=== PATIENT | female | born 1960 | race Two or more races ===

== ENCOUNTER 2022-08-02 16:54 | Emergency (ER) | payer OTHER ==
[~2022-08-02] VITALS: Ht 165.1 cm; Wt 63.5 kg
--- NOTE | 2022-08-02 17:40 | NUR ---
BIB PA FROM SNF FOR EVAL S/P UNWITNESSED FALL LAST NIGHT, NOTED BRUISING TO FOREHEAD, CHEST AND L SHOULDER.
--- NOTE | 2022-08-02 17:46 | NUR ---
PT IS A DNR NOT FULL CODE , ACCCORDING TO EDIE HER BROTHER
--- NOTE | 2022-08-02 18:14 | NUR ---
PT TAKEN TO CT
--- NOTE | 2022-08-02 19:20 | NUR ---
[facility] CALLED FOR TRANSPORT ETA 90 MINS.
--- NOTE | 2022-08-02 19:27 | NUR ---
REPORT RECEIVED FROM SURESH MCGREGOR. PATIENT WILL BE DISCHARGED. WAITING FOR TRANSPORTATION TO BRING PT BACK HOME.
--- NOTE | 2022-08-02 20:49 | NUR ---
REPORT GIVEN TO [facility].
--- NOTE | 2022-08-02 21:27 | NUR ---
Patient discharged to home in stable condition. Written and verbal after care instructions given. Patient verbalizes understanding of instruction.
[2022-08-02 21:28] VITALS: BP 109/71
== END 2022-08-02 21:00 ==
LOC: ER 17:00
DX: S00.83XA Contusion of other part of head, initial encounter (principal); S20.219A Contusion of unspecified front wall of thorax, initial encounter; F32.9 Major depressive disorder, single episode, unspecified; Z86.69 Personal history of other diseases of the nervous system and sense organs; Z87.440 Personal history of urinary (tract) infections; W18.30XA Fall on same level, unspecified, initial encounter; Y93.89 Activity, other specified; Y92.89 Other specified places as the place of occurrence of the external cause; Y99.8 Other external cause status
CPT/HCPCS: 70450-TC

== ENCOUNTER 2022-11-04 18:37 | Inpatient (IN) | payer OTHER ==
[~2022-11-04] VITALS: Ht 162.6 cm; Wt 54.4 kg
--- NOTE | 2022-11-04 18:40 | NUR ---
RECEVED PT 62 YRS FENALE TRANSFER FROM SNF BY LILIAN SANCHEZ for evaluation OF WEEKNEESS on lt side pt awake and alert x1 norm[place] level LAST KNOWN WILL AT 1400 TODY
--- NOTE | 2022-11-04 19:05 | NUR ---
CODE STROKE ACTIVATED
--- NOTE | 2022-11-04 19:07 | NUR ---
RN VP DIGITAL MARKETING AT PT'S BEDSIDE WITH TELE NEURO COMPUTER
--- NOTE | 2022-11-04 19:07 | NUR ---
PT TAKEN TO CT VIA GURNEY VIA ACLS PROTOCOL
[2022-11-04] MEDS ORDERED: IOHEXOL-350 100 ML VIAL IV ONE (19:08)
[2022-11-04] MEDS ORDERED: IV NS 0.9% 250 ML IV ONE (19:08)
[2022-11-04] MEDS ORDERED: CT SWABBABLE VALVE TRANS SET 1 EA INFUS.SET MC ONE (19:08)
--- NOTE | 2022-11-04 19:08 | NUR ---
TABLE WORKER WITH PT IN CT ROOM
--- NOTE | 2022-11-04 19:22 | NUR ---
PT RETURNED TO ER BED [address]
--- NOTE | 2022-11-04 19:28 | NUR ---
PT TO TELE NEURO CALL WITH DR. WILLEM BUCKNER NEURO
--- NOTE | 2022-11-04 19:29 | NUR ---
ELECTRIC POWER SUPERINTENDENT AT PT'S BEDSIDE FOR EKG
[2022-11-04 19:34] LABS: CALCIUM, SERUM 9.2 mg/dL (8.5-10.1); CARBON DIOXIDE 32 mmol/L (21-32); CHLORIDE 108 mmol/L (98-107); CREATININE 1.1 mg/dL (0.6-1.3); GLUCOSE 114 mg/dL (74-106); POTASSIUM 4.1 mmol/L (3.5-5.1); SODIUM SERUM 144 mmol/L (136-145); UREA NITROGEN, BLOOD 21 mg/dL (7-18)
--- NOTE | 2022-11-04 19:40 | NUR ---
RECEIVED PT WITH ONGOING INTERVIEW FROM TELE NEURO DR BUCKNER. CODE STROKE WAS ACTIVATED FOR HER AT AROUND 1905. PER DR BUCKNER PT IS NOT A CANDIDATE AND PT DIDNT HAVE A STROKE. PATIENT IS AAOX2. HER BASELINE. UPPER EXTREMITIES ARE STRONG, LOWER EXTREMITIES ARE WEAK. PT HAS IV RANDALL ON LEFT AC G20. PATIENT PASSED SWALLOWING EVAL NIHSS SCORE 4, BS 81, DR HOGDSON MADE AWARE.
--- NOTE | 2022-11-04 19:49 | NUR ---
HAND OFF RUPINDER PRINCE
[2022-11-04 19:51] LABS: BASOPHILS % (AUTO) 0.4 % (0.0-2.0); EOSINOPHILS % (AUTO) 0.9 % (0.0-6.0); HEMATOCRIT 32 % (33-45); HEMOGLOBIN 10.4 g/dL (11.5-14.8); LYMPHOCYTES % (AUTO) 14.3 % (20.0-44.0); MEAN CORPUSCULAR HGB CONC 33 g/dl (31.0-36.0); MEAN CORPUSCULAR VOLUME 85 fL (82-100); MONOCYTES # (AUTO) 0.7 K/uL (0.1-1.30); MONOCYTES % (AUTO) 9.9 % (2.0-12.0); NEUTROPHILS # (AUTO) 5.3 K/uL (1.8-8.9); NEUTROPHILS % (AUTO) 74.5 % (43.0-81.0); PLATELET COUNT (AUTO) 358 K/uL (150-450); RED BLOOD CELL COUNT(AUTO) 3.73 MIL/uL (4.0-5.2); WHITE BLOOD COUNT (AUTO) 7.1 K/uL (4.3-11.0)
[2022-11-04] MEDS ORDERED: ASPIRIN 325 MG TABLET PO ONE (20:00)
[2022-11-04] MEDS ORDERED: ASPIRIN 325 MG TABLET ONE (20:28)
[2022-11-04] MEDS ORDERED: HALOPERIDOL LACTATE INJ 5 MG/ML VIAL ONE (20:29)
[2022-11-04] MEDS ORDERED: HALOPERIDOL LACTATE INJ 5 MG/ML VIAL IM ONE (20:30)
--- NOTE | 2022-11-04 20:34 | NUR ---
PATIENT REMOVED IV LINE. AND FIGHTING PHYSICALLY THE STAFF. HALDOL 5MG IM GIVEN.
--- NOTE | 2022-11-04 20:37 | NUR ---
IV RANDALL REINSERTED ON RIGHT HAND G20. BLOOD DRAWN AND SENT TO LAB
--- NOTE | 2022-11-04 20:59 | NUR ---
SPOKE TO [facility] WELLNESS INSTRUCTOR , SWEETIE. CLINICALS INFO GIVEN. POSSIBLE TRANSFER. TEL: [phone]
[2022-11-04] MEDS ORDERED: FOLI5VIA2 PO (21:40)
[2022-11-04] MEDS ORDERED: CHOL400T11 PO (21:40)
[2022-11-04] MEDS ORDERED: ESCI10TA PO (21:40)
[2022-11-04] MEDS ORDERED: MEMA10TA PO (21:40)
[2022-11-04] MEDS ORDERED: OLAN7.5T3 PO (21:40)
[2022-11-04] MEDS ORDERED: MULT15TA3 PO (21:40)
[2022-11-04] MEDS ORDERED: ATOR20TA PO (21:40)
[2022-11-04] MEDS ORDERED: DONE10TA11 PO (21:40)
[2022-11-04] MEDS ORDERED: MULT-594 PO (21:40)
[2022-11-04] MEDS ORDERED: ASPI-1169 PO (21:40)
--- NOTE | 2022-11-04 21:52 | NUR ---
REC'D A CALL FROM DORENE PITT CM. DR ABRIL PAZ AT [facility] HAS ACCEPTED THE PT. WAITING FOR BED ASSIGNMENT.
--- NOTE | 2022-11-04 22:36 | NUR ---
UPDATE GIVEN TO BROTHER JEISON NICE. CELL # [phone] ([facility] [employer]) AND HOME [phone]
--- NOTE | 2022-11-05 10:26 | NUR ---
CALLED [facility] [phone] ASKED CM TO CALL US BACK.
--- NOTE | 2022-11-05 10:30 | NUR ---
INEZ CATHERINE [phone] WILL CALL US BACK.
--- NOTE | 2022-11-05 10:42 | NUR ---
INEZ REGAL [id number] TELE BED [phone]
--- NOTE | 2022-11-05 10:48 | NUR ---
DR. JACKSON SPEAKING WITH DR. TSE.
--- NOTE | 2022-11-05 11:26 | NUR ---
GOT BED 328-2 ADMITTING INFORMED.
--- NOTE | 2022-11-05 11:38 | NUR ---
REPORT GIVEN TO KORINA PRINCE. FOR CONTINUITY OF CARE.
--- NOTE | 2022-11-05 12:00 | NUR ---
MOVED TO INPATIENT ROOM SAFELY PER PROTOCOL.
--- NOTE | 2022-11-05 12:30 | NUR ---
WRITER EDITOR OPENING NOTES ADMITTED THIS 62 YO FEMALE TO UNIT AT 1205 VIA GURNEY WITH DX OF TIA. AOX1, AWARE TO SELF ONLY, TALKING TO HERSELF, CONFUSED, UNABLE TO MAKE NEEDS FULLY KNOWN. VS TAKEN AND RECORDED. PT ON ROOM AIR. TOLERATING WELL WITH NO ACUTE RESPIRATORY DISTRESS NOTED. IV ACCESS ON LW G#20 SALINE LOCKED, PATENT AND FLUSHING WELL, WRAPPED IN GAUZE. LUNGS CLEAR ON AUSCULTATION BILATERALLY, ABDOMEN SOFT, NON-TENDER AND NON-DISTENDED WITH + BOWEL SOUNDS ON ALL FOUR QUADRANTS. PHOTOS OF SKIN ISSUES TAKEN AND FILED ON HER CHART. NIHSS SCORE OF 4, NURSING SWALLOW SCREEN DONE AND PT PASSED, EDUCATION ATTEMPTED BUT PATIENT CONFUSED/POOR CONCENTRATION, MD AWARE. SAFETY MEASURES IN PLACE: BED IN LOWEST AND LOCKED POSITION, SIDE RAILS X2, CALL LIGHT AND TRAY TABLE WITHIN EASY REACH. WILL CONTINUE TO MONITOR.
--- NOTE | 2022-11-05 15:05 | NUR ---
RN NOTES - RESTRAINTS APPLIED ON BOTH WRISTS FOR PATIENT FOR SAFETY, PATIENT TRYING TO PULL IV AND WASNT COMPLYING ON SAFETY MEASURES. DR JACKSON ORDERED, CALLED BROTHER EDIE AND INFORM, UNDERSTANDS THAT NEED.
[2022-11-05] MEDS ORDERED: LORAZEPAM INJ 2 MG/ML VIAL IV ONE (15:30)
[2022-11-05 16:00] VITALS: BP 123/74
--- NOTE | 2022-11-05 16:00 | NUR ---
RN NOTES - MRI OF THE BRAIN CALLED BROTHER EDIE FOR THE HISTORY OF THE PATIENT, DR JACKSON ORDERED ONE TIME ATIVAN 1 MG IV FOR MRI PREPARATION. WILL ADMINISTER, JUST AWAITING CONFIRMATION FROM MRI.
--- NOTE | 2022-11-05 16:11 | NUR ---
RN NOTES - MRI JACKELINE FONSECA PICKED PATIENT UP, ATIVAN 1 MG GIVEN TO THE PATIENT.
[2022-11-05] MEDS: MULTIVITAMINS,THERAGRAN 1 UDTAB TABLET PO SCH (17:38)
[2022-11-05] MEDS: MEMANTINE HCL 5 MG TABLET PO SCH (17:38)
--- NOTE | 2022-11-05 18:28 | NUR ---
RN NOTES - CODE STATUS IS DNR -COMFORT FOCUSED ONLY PER SNF MD DANIEL AWARE, FAMILY CONFIRMED
--- NOTE | 2022-11-05 19:22 | NUR ---
MS RN CLOSING NOTE PATIENT IN BED, WITH HOB ELEVATED, AOX1, CONFUSED, NOT IN ANY FORM OF ACUTE DISTRESS. IV ACCESS ON LW 20G SL, PATENT AND FLUSHING WELL. STILL WITH BILATERAL SOFT RESTRAINTS FOR SAFETY. ALL DUE MEDS GIVEN. ALL NEEDS MET. SAFETY MEASURES MAINTAINED. KEPT BED IN LOCKED AND IN LOWEST POSITION. SIDE RAILS UP X2. CALL LIGHT AND TRAY TABLE WITHIN EASY REACH. ENDORSED TO RADIO PRESENTER NURSE.
--- NOTE | 2022-11-05 19:58 | NUR ---
POSTAL TRANSPORTATION CLERK OPENING NOTE PATIENT AWAKE IN BED, ALERT TO NAME BUT CONFUSED. PATIENT STABLE ON RA, NO S/S OF DISTRESS OR SOB NOTED, BREATHING EVEN AND UNLABORED. PT ON EXTERNAL HORSE STUD WORKER READING SINUS RHYTHM, HR: 64. IV ACCESS ON LEFT WRIST #20G INTACT AND SALINE LOCKED. BILATERAL SOFT WRIST RESTRAINTS IN PLACE. SAFETY MEASURES IN PLACE: CALL LIGHT WITHIN REACH, SIDE RAILS UP X 3, BED LOCKED IN LOWEST POSITION, HOB ELEVATED, BED ALARM ON. WILL CONTINUE TO MONITOR PATIENT
[2022-11-05 20:00] VITALS: BP 119/82
[2022-11-05] MEDS ORDERED: ATORVASTATIN 40 MG TABLET PO SCH (22:00)
[2022-11-05] MEDS ORDERED: OLANZAPINE 5 MG TABLET PO SCH (22:00)
[2022-11-06] VITALS: BP 153/90
--- NOTE | 2022-11-06 06:19 | NUR ---
EMPLOYMENT OFFICE CLERK CLOSING NOTE PATIENT SLEEPING IN BED, EASILY AWAKENED, ALERT TO NAME BUT VERY CONFUSED. PATIENT STABLE ON RA, NO S/S OF DISTRESS OR SOB NOTED, BREATHING EVEN AND UNLABORED. PT ON EXTERNAL COMMUNITY DEVELOPMENT TECHNICIAN READING SINUS MARCOS, HR: 57. IV ACCESS ON LEFT WRIST #20G INTACT AND SALINE LOCKED. BILATERAL SOFT WRIST RESTRAINTS IN PLACE. NO SIGNIFICANT CHANGES THIS SHIFT. MEDICATIONS GIVEN ORDERED, PT NEEDS MET THROUGHOUT SHIFT, PATIENT TURNED Q2H AND HYGIENE CARE PROVIDED. SAFETY MEASURES IN PLACE: CALL LIGHT WITHIN REACH, SIDE RAILS UP X 3, BED LOCKED IN LOWEST POSITION, HOB ELEVATED, BED ALARM ON. WILL ENDORSE TO DAYSHIFT RN FOR CONTINUITY OF CARE
[2022-11-06 07:00] VITALS: BP 130/76
--- NOTE | 2022-11-06 07:50 | NUR ---
BLACK OXIDE COATING EQUIPMENT TENDER OPENING NOTE PATIENT AWAKE IN BED, ALERT TO NAME BUT CONFUSED. PT STABLE ON RA, NO S/S OF DISTRESS OR SOB NOTED, NO C/O OF PAIN AND DISCOMFORT . PT ON EXTERNAL IDENTITY ACCESS MANAGEMENT ARCHITECT READING SINUS RHYTHM, HR: 64. IV ACCESS ON LEFT WRIST #20G INTACT AND SALINE LOCKED. BILATERAL SOFT WRIST RESTRAINTS IN PLACE. SAFETY MEASURES IN PLACE: CALL LIGHT WITHIN REACH, SIDE RAILS UP X 3, BED LOCKED IN LOWEST POSITION, HOB ELEVATED, BED ALARM ON. WILL CONTINUE TO MONITOR PATIENT
[2022-11-06] MEDS: MEMANTINE HCL 5 MG TABLET PO SCH (08:46)
[2022-11-06] MEDS: MULTIVITAMINS,THERAGRAN 1 UDTAB TABLET PO SCH (08:54)
[2022-11-06] MEDS ORDERED: ENOXAPARIN SODIUM 40 MG/0.4 ML DISP.SYRIN SQ SCH (09:00)
[2022-11-06] MEDS ORDERED: ASPIRIN EC 81 MG TABLET.DR PO SCH (09:00)
[2022-11-06] MEDS ORDERED: ESCITALOPRAM OXALATE (10 MG) 10 MG TABLET PO SCH (09:00)
[2022-11-06] MEDS ORDERED: MULTIVIT W/MINERALS 1 TAB TABLET PO SCH (09:00)
[2022-11-06] MEDS ORDERED: DONEPEZIL 5 MG TABLET PO SCH (09:00)
[2022-11-06] MEDS ORDERED: CHOLECALCIFEROL 1,000 UNIT TABLET (VIT D3) PO SCH (09:00)
[2022-11-06 12:17] LABS: THYROID STIMULATING HORMONE 2.253 uIU/mL (0.358-3.74)
--- NOTE | 2022-11-06 15:48 | NUR ---
FAX MACHINE OPERATOR NOTES PATIENT WAS SEEN BY DR JACKSON AND WITH ORDER FOR DISCHARGE TO SNF - [facility] , ALL D/C PAPERS WERE PREPARED AND DISCHARGE INSTRUCTIONS REGARDING STROKE WAS GIVEN TO BROTHER EDIE AND REPORT WAS GIVEN TO DIDI PRINCE IN SNF , ALL BELONGINGS WAS BROUGHT BY THE PATIENT AND FORM WAS SIGNED BY THE BROTHER , PATIENT WILL BE PIC K UP BY AMBULANCE VIA GURNEY , PICK AROUND 1535 AND LEFT WITH NO SOB OR DISTRESS NOTED , NO C/O OF PAIN AND DISCOMFORT AND IN A STABLE CONDITION
== END 2022-11-06 15:50 | DRG 69 ==
LOC: ER 19:04 → TELE 11-05 11:37 → MED 11-06 12:44
PROVIDERS: ADMIT Internal Medicine; ATTEND Internal Medicine
DX: G45.9 Transient cerebral ischemic attack, unspecified (principal); F02.83 Dementia in other diseases classified elsewhere, unspecified severity, with mood disturbance; E78.5 Hyperlipidemia, unspecified; Z66 Do not resuscitate; Z20.822 Contact with and (suspected) exposure to COVID-19; Z74.09 Other reduced mobility; G30.9 Alzheimer's disease, unspecified; Z87.440 Personal history of urinary (tract) infections; F32.9 Major depressive disorder, single episode, unspecified; Z79.82 Long term (current) use of aspirin; Z79.899 Other long term (current) drug therapy; D53.9 Nutritional anemia, unspecified; R27.0 Ataxia, unspecified; R29.704 NIHSS score 4
CPT/HCPCS: 36415; 70450-TC; 70496-TC; 70498-TC; 70551-TC; 71045-TC; 80048-TC; 80061-TC; 82962-TC; 83540-TC; 84443-TC; 84484-TC; 85025-TC; 85730-TC; 87081-TC; 93307-TC; 97110-TC; 97112-TC; 97116-TC; 97530-TC; C9803; G0378; J1630; J1650; J2060; J7050; Q9967

== ENCOUNTER 2023-11-12 16:23 | Emergency (ER) | payer MEDICARE, OTHER ==
[~2023-11-12] VITALS: Ht 162.6 cm; Wt 54.4 kg
[~2023-11-12 16:23] MED LIST: ASPI-1169 PO; ATOR20TA PO; CHOL400T11 PO; DONE10TA11 PO; ESCI10TA PO; FOLI5VIA2 PO; MEMA10TA PO; MULT-594 PO; MULT15TA3 PO; OLAN7.5T3 PO
[2023-11-12 17:24] LABS: BASOPHILS % (AUTO) 0.7 % (0.0-2.0); CALCIUM, SERUM 9.5 mg/dL (8.5-10.1); CREATININE 0.8 mg/dL (0.6-1.3); EOSINOPHILS # (AUTO) 0.1 K/uL (0.0-0.7); EOSINOPHILS % (AUTO) 2.2 % (0.0-6.0); HEMATOCRIT 34 % (33-45); HEMOGLOBIN 11.2 g/dL (11.5-14.8); LYMPHOCYTES # (AUTO) 1.3 K/uL (0.8-4.8); LYMPHOCYTES % (AUTO) 20.5 % (20.0-44.0); MEAN CORPUSCULAR HEMOGLOBIN 28 PG (26.0-33.0); MEAN CORPUSCULAR HGB CONC 33 g/dl (31.0-36.0); MEAN CORPUSCULAR VOLUME 86 fL (82-100); MONOCYTES # (AUTO) 0.7 K/uL (0.1-1.30); MONOCYTES % (AUTO) 11.5 % (2.0-12.0); NEUTROPHILS % (AUTO) 65.1 % (43.0-81.0); PLATELET COUNT (AUTO) 373 K/uL (150-450); POTASSIUM 4.8 mmol/L (3.5-5.1); RED BLOOD CELL COUNT(AUTO) 3.92 MIL/uL (4.0-5.2); RED CELL DISTRIBUTION WIDTH 14.7 % (11.5-15.0); WHITE BLOOD COUNT (AUTO) 6.2 K/uL (4.3-11.0)
[2023-11-12 17:28] LABS: ALBUMIN 3.1 g/dL (3.4-5.0); BILIRUBIN,DIRECT 0.1 mg/dL (0.0-0.2); BILIRUBIN,TOTAL 0.3 mg/dL (0.2-1.0); TOTAL PROTEIN, SERUM 7.2 g/dL (6.4-8.2)
[2023-11-12 17:30] LABS: SALICYLATE 1.9 mg/dL (2.8-20.0)
[2023-11-12 19:26] VITALS: BP 122/72; TEMP 98.1; O2SAT 98
== END 2023-11-12 19:27 ==
LOC: ER 16:31
DX: G30.9 Alzheimer's disease, unspecified (principal); F02.80 Dementia in other diseases classified elsewhere, unspecified severity, without behavioral disturbance, psychotic disturbance, mood disturbance, and anxiety; F32.9 Major depressive disorder, single episode, unspecified; Z79.82 Long term (current) use of aspirin; Z98.890 Other specified postprocedural states; Z79.899 Other long term (current) drug therapy; W18.39XA Other fall on same level, initial encounter; Y93.89 Activity, other specified; Y92.89 Other specified places as the place of occurrence of the external cause; Y99.8 Other external cause status
CPT/HCPCS: 36415; 70450-TC; 72125-TC; 80048-TC; 80076-TC; 85025-TC; G0480